=== PATIENT | female | born 1960 | race Hispanic/Latino ===

== ENCOUNTER 2019-03-05 10:40 | Inpatient (IN) | payer SELFPAY ==
[~2019-03-05] VITALS: Ht 152.4 cm; Wt 111.9 kg
[2019-03-05] MEDS ORDERED: SODIUM CHLORIDE 0.9% 100 ML IV ONE (10:55)
[2019-03-05] MEDS ORDERED: ASPIRIN 325 MG TABLET ONE (10:56)
[2019-03-05] MEDS ORDERED: DILTIAZEM HCL 125 MG/25 ML VIAL IV ONE ×2 (10:57→22:18)
[2019-03-05] MEDS ORDERED: DILTIAZEM HCL 5 MG/ML 10 ML VIAL IV ONE (10:57)
[2019-03-05 11:02] LABS: BASOPHILS % (AUTO) 0.3 % (0.0-5.0); HEMATOCRIT 27.9 % (36-48); LYMPHOCYTES % (AUTO) 17.5 % (21.0-51.0); MEAN CORPUSCULAR HEMOGLOBIN 20.7 pg (27.0-33.0); MEAN CORPUSCULAR HGB CONC 28.7 g/dL (32.0-36.0); MEAN CORPUSCULAR VOLUME 72.1 fL (79-99); MONOCYTES % (AUTO) 9.4 % (3.0-13.0); NEUTROPHILS % (AUTO) 71.2 % (40.0-77.0); NUCLEATED RED BLOOD CELLS 0.3 % (0.0-0.19); PLATELET COUNT (AUTO) 396 K/uL (130-400); RED BLOOD CELL COUNT(AUTO) 3.87 MIL/uL (4.00-5.50); RED CELL DISTRIBUTION WIDTH 18.2 % (11.0-15.5); WHITE BLOOD COUNT (AUTO) 8.7 K/uL (4.8-10.8)
[2019-03-05 11:07] LABS: CREATININE 0.8 mg/dL (0.5-1.5); POTASSIUM 4.2 mmol/L (3.5-5.1)
[2019-03-05 11:13] LABS: ALBUMIN 3.5 g/dL (3.5-5.0); BILIRUBIN,TOTAL 0.8 mg/dL (0.2-1.0); TOTAL PROTEIN, SERUM 8.1 g/dL (6.0-8.3)
[2019-03-05 11:49] LABS: INR 1.14 (0.85-1.15); PARTIAL THROMBOPLASTIN TIME 25.6 SEC (26.3-35.5); PROTHROMBIN TIME 11.9 SEC (9.6-11.6)
[2019-03-05] MEDS ORDERED: ONDANSETRON HCL 4 MG/2 ML VIAL IV PRN (13:30)
[2019-03-05] MEDS ORDERED: ACETAMINOPHEN-CODEINE 300/30MG TAB PO PRN (13:30)
[2019-03-05] MEDS ORDERED: LACTULOSE 20 GM/30 ML UDCUP PO PRN (13:30)
[2019-03-05] MEDS ORDERED: MORPHINE SULFATE 4 MG/1ML SYG IV PRN (13:30)
[2019-03-05] MEDS ORDERED: HEPARIN SODIUM 5000UNIT/ML 1ML VIAL SQ PRN (13:45)
[2019-03-05] MEDS: METOPROLOL TARTRATE 25 MG TAB PO SCH (14:00)
[2019-03-05 14:14] LABS: BASOPHILS % (AUTO) 0.2 % (0.0-5.0); EOSINOPHILS % (AUTO) 0.3 % (0.0-8.0); HEMATOCRIT 27.1 % (36-48); MEAN CORPUSCULAR HEMOGLOBIN 20.7 pg (27.0-33.0); MEAN CORPUSCULAR HGB CONC 28.8 g/dL (32.0-36.0); MEAN CORPUSCULAR VOLUME 72.1 fL (79-99); MONOCYTES % (AUTO) 8.6 % (3.0-13.0); NEUTROPHILS % (AUTO) 78.3 % (40.0-77.0); NUCLEATED RED BLOOD CELLS 0.2 % (0.0-0.19); PLATELET COUNT (AUTO) 367 K/uL (130-400); RED BLOOD CELL COUNT(AUTO) 3.76 MIL/uL (4.00-5.50); RED CELL DISTRIBUTION WIDTH 18.1 % (11.0-15.5); WHITE BLOOD COUNT (AUTO) 9.3 K/uL (4.8-10.8)
[2019-03-05] MEDS ORDERED: FAMOTIDINE 20MG TAB 20 MG TAB ONE (14:16)
[2019-03-05] MEDS ORDERED: METOPROLOL TARTRATE 25 MG TAB ONE (14:17)
[2019-03-05] MEDS ORDERED: HEPARIN 25000 UNITS/250 ML D5W 250 ML IV ONE (14:41)
[2019-03-05 14:46] LABS: % IRON SATURATION 6.4 % (22-44)
[2019-03-05] MEDS ORDERED: HEPARIN SODIUM 5000UNIT/ML 1ML VIAL ONE (15:00)
[2019-03-05] MEDS: INSULIN HUMULIN R 100 UNIT/ML 3ML SQ SCH ×2 (16:30→21:00)
[2019-03-05 19:51] LABS: HEMATOCRIT 25.8 % (36-48)
[2019-03-05] MEDS: FAMOTIDINE 20MG TAB 20 MG TAB PO SCH (21:00)
[2019-03-05] MEDS: DILTIAZEM HCL 125 MG/25 ML 125 MG in SODIUM CHLORIDE 0.9% 100 ML IV SCH (22:00)
[2019-03-05 22:22] VITALS: BP 134/73
[2019-03-05 23:00] LABS: INR 1.17 (0.85-1.15); PARTIAL THROMBOPLASTIN TIME 42.9 SEC (26.3-35.5); PROTHROMBIN TIME 12.2 SEC (9.6-11.6)
[2019-03-05] MEDS ORDERED: ALBU1.252 IH (23:03)
[2019-03-05 23:14] VITALS: BP 135/69
[2019-03-06] MEDS: ACETAMINOPHEN 325 MG TAB PO PRN ×2 (00:48→17:11)
[2019-03-06] MEDS: METOPROLOL TARTRATE 25 MG TAB PO SCH ×4 (01:53→23:02)
[2019-03-06 03:27] VITALS: BP 128/87
[2019-03-06 04:03] LABS: BASOPHILS % (AUTO) 0.2 % (0.0-5.0); EOSINOPHILS % (AUTO) 1.4 % (0.0-8.0); HEMATOCRIT 26.1 % (36-48); LYMPHOCYTES % (AUTO) 17.6 % (21.0-51.0); MEAN CORPUSCULAR HEMOGLOBIN 19.9 pg (27.0-33.0); MEAN CORPUSCULAR HGB CONC 27.6 g/dL (32.0-36.0); MEAN CORPUSCULAR VOLUME 72.1 fL (79-99); NEUTROPHILS % (AUTO) 72.4 % (40.0-77.0); NUCLEATED RED BLOOD CELLS 0.3 % (0.0-0.19); PLATELET COUNT (AUTO) 364 K/uL (130-400); RED BLOOD CELL COUNT(AUTO) 3.62 MIL/uL (4.00-5.50)
[2019-03-06 04:34] LABS: HEMOGLOBIN A1C 6.9 % (4.0-6.0)
[2019-03-06 04:38] LABS: BILIRUBIN,TOTAL 0.8 mg/dL (0.2-1.0); CREATININE 0.8 mg/dL (0.5-1.5); POTASSIUM 3.9 mmol/L (3.5-5.1); TOTAL PROTEIN, SERUM 7.4 g/dL (6.0-8.3)
[2019-03-06] MEDS ORDERED: HEPARIN 25000 UNITS/250 ML D5W 250 ML IV ONE (05:14)
[2019-03-06] MEDS: DILTIAZEM HCL 125 MG/25 ML 125 MG in SODIUM CHLORIDE 0.9% 100 ML IV SCH (05:20)
[2019-03-06] MEDS: INSULIN HUMULIN R 100 UNIT/ML 3ML SQ SCH ×4 (05:35→21:00)
[2019-03-06 07:30] VITALS: BP 133/98
[2019-03-06 07:39] LABS: HEMATOCRIT 27.4 % (36-48)
--- NOTE | 2019-03-06 08:10 | NUR ---
ASSESSMENT ENCOUNTERED PT A&OX3, CALM COOPERATIVE AND DOES NOT APPEAR TO BE IN ANY DISTRESS NOR ANY NEURO DEFICITS PRESENT. PT DENIES PAIN, SOB, NAUSEA OR PALPITATIONS BUT DOES C/O DYSPNEA ON EXERTION. PT IS AMBULATORY, GAIT SLOW BUT STEADY WITH ASSIST. PT IS ABLE TO TOLERATE FOODS, FLUIDS AND MEDICATION WITH NO THROAT CLEARING OR COUGH. CALL LIGHT WITHIN REACH, FAMILY AT BEDSIDE.
[2019-03-06] MEDS ORDERED: ENOXAPARIN SODIUM 40 MG/0.4 ML SYRINGE SQ SCH (09:00)
[2019-03-06] MEDS ORDERED: POTASSIUM CHLORIDE 20 MEQ ERTAB PO SCH (09:00)
[2019-03-06] MEDS ORDERED: FUROSEMIDE 10 MG/ML 4ML VIAL IV SCH (09:00)
[2019-03-06] MEDS ORDERED: POTASSIUM CHLORIDE 20 MEQ ERTAB PO ONE (11:26)
[2019-03-06] MEDS: FAMOTIDINE 20MG TAB 20 MG TAB PO SCH ×2 (11:28→23:01)
[2019-03-06 11:30] VITALS: BP 131/84
--- NOTE | 2019-03-06 15:06 | NUR ---
DC PLAN VISITED WITH PATIENT. PATIENT LIVES WITH SON. INDEPENDENT ABLE TO PERFORM ADL'S. PATIENT HAS NO SERVICES OR DME'S. FEELS SAFE TO RETURN HOME. Addendum: 03/06/19 at 1507 by CHANELLE MARTEL RN CM Amended: Links added.
[2019-03-06 15:30] VITALS: BP 127/83
[2019-03-06] MEDS ORDERED: COMPOUND IV MISC 1 EACH IVSOLN MISC PRN (16:45)
[2019-03-06] MEDS: HEPARIN 25000 UNITS/250 ML D5W 250 ML IV SCH (17:09)
[2019-03-06 19:00] VITALS: BP 124/76
[2019-03-06 23:00] VITALS: BP 130/75
[2019-03-06] MEDS: EPOETIN ALFA 10,000 UNIT/ML VIAL SQ SCH (23:02)
[2019-03-06] MEDS: IRON SUCROSE COMPLEX 100 MG in SODIUM CHLORIDE 0.9% 50 ML IV SCH (23:02)
[2019-03-07 01:47] LABS: BASOPHILS % (AUTO) 0.2 % (0.0-5.0); EOSINOPHILS % (AUTO) 2.3 % (0.0-8.0); HEMATOCRIT 26.3 % (36-48); LYMPHOCYTES % (AUTO) 19.4 % (21.0-51.0); MEAN CORPUSCULAR HEMOGLOBIN 20.5 pg (27.0-33.0); MEAN CORPUSCULAR HGB CONC 28.5 g/dL (32.0-36.0); MEAN CORPUSCULAR VOLUME 71.9 fL (79-99); MONOCYTES % (AUTO) 7.1 % (3.0-13.0); NEUTROPHILS % (AUTO) 70.4 % (40.0-77.0); NUCLEATED RED BLOOD CELLS 0.6 % (0.0-0.19); PLATELET COUNT (AUTO) 403 K/uL (130-400); RED BLOOD CELL COUNT(AUTO) 3.66 MIL/uL (4.00-5.50); RED CELL DISTRIBUTION WIDTH 18.1 % (11.0-15.5); WHITE BLOOD COUNT (AUTO) 8.8 K/uL (4.8-10.8)
[2019-03-07 02:06] LABS: ALBUMIN 3.1 g/dL (3.5-5.0); BILIRUBIN,TOTAL 0.8 mg/dL (0.2-1.0); CREATININE 0.9 mg/dL (0.5-1.5); POTASSIUM 3.7 mmol/L (3.5-5.1); TOTAL PROTEIN, SERUM 7.5 g/dL (6.0-8.3)
[2019-03-07 04:00] VITALS: BP 124/78
[2019-03-07] MEDS: INSULIN HUMULIN R 100 UNIT/ML 3ML SQ SCH ×4 (06:40→20:52)
[2019-03-07 07:27] LABS: HEMATOCRIT 27.1 % (36-48)
[2019-03-07 08:19] VITALS: BP 142/84
[2019-03-07] MEDS: FAMOTIDINE 20MG TAB 20 MG TAB PO SCH ×2 (09:19→20:54)
[2019-03-07] MEDS: METOPROLOL TARTRATE 25 MG TAB PO SCH ×3 (09:19→20:54)
[2019-03-07] MEDS: HEPARIN 25000 UNITS/250 ML D5W 250 ML IV SCH (10:50)
[2019-03-07] MEDS ORDERED: HEPARIN SODIUM 5000UNIT/ML 1ML VIAL IV SCH (11:00)
[2019-03-07 11:34] VITALS: BP 129/89
[2019-03-07 15:06] VITALS: BP 130/82
[2019-03-07 20:01] VITALS: BP 120/90
[2019-03-07] MEDS: IRON SUCROSE COMPLEX 100 MG in SODIUM CHLORIDE 0.9% 50 ML IV SCH (20:54)
[2019-03-07] MEDS: EPOETIN ALFA 10,000 UNIT/ML VIAL SQ SCH (20:55)
[2019-03-07 23:43] VITALS: BP 135/65
[2019-03-08 04:00] VITALS: BP 134/77
[2019-03-08 04:53] LABS: BASOPHILS % (AUTO) 0.3 % (0.0-5.0); EOSINOPHILS % (AUTO) 2.6 % (0.0-8.0); HEMATOCRIT 26.6 % (36-48); LYMPHOCYTES % (AUTO) 21.1 % (21.0-51.0); MEAN CORPUSCULAR HEMOGLOBIN 20.7 pg (27.0-33.0); MEAN CORPUSCULAR HGB CONC 28.6 g/dL (32.0-36.0); MEAN CORPUSCULAR VOLUME 72.5 fL (79-99); NUCLEATED RED BLOOD CELLS 0.8 % (0.0-0.19); PLATELET COUNT (AUTO) 354 K/uL (130-400); RED BLOOD CELL COUNT(AUTO) 3.67 MIL/uL (4.00-5.50); RED CELL DISTRIBUTION WIDTH 18.2 % (11.0-15.5); WHITE BLOOD COUNT (AUTO) 7.4 K/uL (4.8-10.8)
[2019-03-08 05:14] LABS: BILIRUBIN,TOTAL 0.5 mg/dL (0.2-1.0); CREATININE 0.8 mg/dL (0.5-1.5); POTASSIUM 3.8 mmol/L (3.5-5.1); TOTAL PROTEIN, SERUM 7.3 g/dL (6.0-8.3)
[2019-03-08] MEDS: INSULIN HUMULIN R 100 UNIT/ML 3ML SQ SCH ×4 (06:20→21:00)
[2019-03-08 08:04] VITALS: BP 135/88
[2019-03-08] MEDS: METOPROLOL TARTRATE 25 MG TAB PO SCH ×3 (09:00→20:57)
[2019-03-08] MEDS: FAMOTIDINE 20MG TAB 20 MG TAB PO SCH ×2 (09:00→20:57)
[2019-03-08 11:28] VITALS: BP 150/95
[2019-03-08 15:19] VITALS: BP 131/74
[2019-03-08 20:24] VITALS: BP 135/75
[2019-03-08] MEDS ORDERED: DIGOXIN 250 MCG TABLET PO SCH (20:45)
[2019-03-08] MEDS: EPOETIN ALFA 10,000 UNIT/ML VIAL SQ SCH (20:58)
[2019-03-08] MEDS: IRON SUCROSE COMPLEX 100 MG in SODIUM CHLORIDE 0.9% 50 ML IV SCH (20:58)
[2019-03-08 23:00] VITALS: BP 142/86
[2019-03-09] VITALS (9 sets, daily range): BP systolic 107–150; BP diastolic 47–94
[2019-03-09] MEDS ORDERED: DIGOXIN 250 MCG TABLET PO SCH ×2 (02:45→08:45)
[2019-03-09 05:33] LABS: BASOPHILS % (AUTO) 0.4 % (0.0-5.0); EOSINOPHILS % (AUTO) 2.2 % (0.0-8.0); HEMATOCRIT 27.6 % (36-48); LYMPHOCYTES % (AUTO) 15.6 % (21.0-51.0); MEAN CORPUSCULAR HEMOGLOBIN 20.4 pg (27.0-33.0); MEAN CORPUSCULAR HGB CONC 28.3 g/dL (32.0-36.0); MEAN CORPUSCULAR VOLUME 72.1 fL (79-99); NEUTROPHILS % (AUTO) 71.9 % (40.0-77.0); NUCLEATED RED BLOOD CELLS 0.6 % (0.0-0.19); PLATELET COUNT (AUTO) 378 K/uL (130-400); RED BLOOD CELL COUNT(AUTO) 3.83 MIL/uL (4.00-5.50); RED CELL DISTRIBUTION WIDTH 18.5 % (11.0-15.5); WHITE BLOOD COUNT (AUTO) 7.9 K/uL (4.8-10.8)
[2019-03-09 05:54] LABS: MAGNESIUM 2.3 mg/dL (1.80-2.40); PHOSPHORUS 3.7 mg/dL (2.5-4.9); THYROID STIMULATING HORMONE 1.23 uIU/mL (0.36-3.74)
[2019-03-09] MEDS: INSULIN HUMULIN R 100 UNIT/ML 3ML SQ SCH ×2 (06:11→11:30)
[2019-03-09 06:51] LABS: % IRON SATURATION 26.7 % (22-44)
[2019-03-09] MEDS ORDERED: FUROSEMIDE 10 MG/ML 4ML VIAL IV SCH (09:00)
[2019-03-09] MEDS: FAMOTIDINE 20MG TAB 20 MG TAB PO SCH (09:00)
[2019-03-09] MEDS ORDERED: PROPOFOL 10 MG/ML 20ML VIAL IV ONE (09:35)
[2019-03-09] MEDS: METOPROLOL TARTRATE 25 MG TAB PO SCH ×2 (10:33→14:00)
[2019-03-09] MEDS ORDERED: METO100T14 PO (13:45)
[2019-03-09] MEDS ORDERED: APIX5TAB PO (13:45)
[2019-03-09] MEDS ORDERED: DIGO125T71 PO (13:45)
[2019-03-09] MEDS ORDERED: FURO-152 PO (14:09)
[2019-03-09] MEDS ORDERED: LISI2.5T2 PO (14:10)
--- NOTE | 2019-03-09 15:10 | NUR ---
DISCHARGE INSTRUCTIONS/INFORMATION GIVEN TO PATIENT. TEACH BACK METHOD USED TO EDUCATE HER ON NEW MEDICATIONS PRESCRIBED, DIET, S/S TO MONITOR FOR, WHEN TO CALL MD, AND F/U APPOINTMENTS. NEW PRESCRIPTIONS WERE ELECTRONICALLY TRANSMITTED TO PREFERRED PHARMACY, [facility]. PIV REMOVED. TIP INTACT. TELE PACK REMOVED AND RETURNED. ALL BELONGINGS WERE PACKED.
[2019-03-10] MEDS ORDERED: METF-444 PO (14:12)
== END 2019-03-09 16:00 | disposition home or self-care (01) | DRG 308 ==
LOC: EDH 10:40 → EDHIP 10:41 → 2DH 21:39
PROVIDERS: ADMIT Internal Medicine; ATTEND Internal Medicine
PROC: 0DJ08ZZ Inspection of Upper Intestinal Tract, Via Natural or Artificial Opening Endoscopic (ICD-10-PCS; principal; 2019-03-09)
DX: I48.91 Unspecified atrial fibrillation (principal); I50.43 Acute on chronic combined systolic (congestive) and diastolic (congestive) heart failure; Z68.42 Body mass index [BMI] 45.0-49.9, adult; D68.59 Other primary thrombophilia; E11.65 Type 2 diabetes mellitus with hyperglycemia; D64.9 Anemia, unspecified; E66.01 Morbid (severe) obesity due to excess calories; D50.9 Iron deficiency anemia, unspecified; I27.20 Pulmonary hypertension, unspecified; G47.30 Sleep apnea, unspecified; I07.1 Rheumatic tricuspid insufficiency; I11.0 Hypertensive heart disease with heart failure; I42.9 Cardiomyopathy, unspecified; J45.909 Unspecified asthma, uncomplicated; Z79.01 Long term (current) use of anticoagulants; Z79.899 Other long term (current) drug therapy
CPT/HCPCS: 36415; 43235; 71045; 80053; 82270; 82550; 82948; 83036; 83540; 83550; 83735; 83880; 84100; 84443; 84484; 85014; 85018; 85025; 85610; 85730; 93005; 93306; 99291; A4606; G0378; J0885; J1644; J1756; J1940; J2704; J3490; J7030